=== PATIENT | male | born 2000 | race Caucasian/White ===

== ENCOUNTER 2023-12-22 12:20 | Emergency (ER) | payer BC, SELFPAY ==
[2023-12-22 12:24] VITALS: BP 139/78; PULSE 65; RESP 16; TEMP 36.4; O2SAT 97; BMI 20.2
--- NOTE | 2023-12-22 12:32 | ED_ITS ---
HPI - Animal Bite General Time Seen by Provider: 12:32 Date Seen: 12/22/23 Chief Complaint: Animal Bite Stated Complaint: Dog bite L hand Time Seen by Provider: 12/22/23 12:31 Source: patient and RN notes reviewed Mode of arrival: ambulatory Limitations: no limitations History of Present Illness HPI narrative: Reno is a very pleasant 23-year-old male with history of tetanus in 2021 otherwise healthy who comes to the emergency room after sustaining a dog bite to his left 4th finger. 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 This cause lacerations. He is still able to move his finger without difficulty. Denies a history of poorly healing wounds or history of diabetes. He does not know the vaccination status of the dog. He has not yet reported the bite. He has not taken any medications for discomfort. Related Data Previous Rx's Medication Instructions Recorded amoxicillin 875 mg-potassium 1 tab PO BID #10 tabs 12/22/23 clavulanate 125 mg tablet Allergies Allergy/AdvReac Type Severity Reaction Status Date / Time No Known Drug Allergies Allergy Verified 12/22/23 12:24 Review of Systems Status of ROS: Reports: 6 or more systems reviewed and unremarkable except as noted in History and below PFSH PFS Social History Smoking Status: Current every day smoker Do you use any of these nicotine containing products: Vaping Products and Smokeless Tobacco Second hand tobacco smoke exposure: No How often do you have a drink containing alcohol: 2-4 times a month AUDIT-C Alcohol total score: 2 Non-prescribed substance use: denies use service: No Exam Narrative: Exam Narrative: Alert and oriented. Very pleasant young man. Examination of the 4th finger shows a v-shaped laceration over the volar aspect of the PIP. This compromises epidermis and dermis and there is visualization of the subcutaneous tissue but no underlying structures. Palpation does not yield any foreign body. Patient can flex extend and there is no obvious deformity. Distally on the medial aspect over the D IP there is a superficial laceration compromising only epidermis. Total length of the v-shaped laceration is approximately 1.5 cm. Procedure: This area was cleansed and then irrigated. Let was applied. Good anesthesia was achieved and 1 suture of 5 0 Ethilon was placed at the apex of the V shaped laceration with moderate wound closure. Patient tolerated procedure well. Const: Vital Signs, click to edit/add: Vital Signs - 24 hr 12/22/23 12:24 Temperature 97.6 F Pulse Rate [Pulse Oximeter] 65 Respiratory Rate 16 Blood Pressure [Ri ght Upper Arm] 139/78 Pulse Oximetry 97 Oxygen Delivery Me thod Room Air Documenting provider has reviewed patient's vital signs: yes Course Vital Signs Vital signs: Initial Vital Signs Temperature 97.6 F 12/22/23 12:24 Temperature Source Temporal Artery Scan 12/22/23 12:24 Pulse Rate 65 12/22/23 12:24 Pulse Rhythm Regular 12/22/23 12:24 Pulse Strength 3+ Normal 12/22/23 12:24 Respiratory Rate 16 12/22/23 12:24 Blood Pressure 139/78 12/22/23 12:24 Blood Pressure Mean 98 12/22/23 12:24 Blood Pressure Position Supine 12/22/23 12:24 Pulse Oximetry 97 12/22/23 12:24 Oxygen Delivery Method Room Air 12/22/23 12:24 Vital Signs Temperature 97.6 F 12/22/23 12:24 Pulse Rate 65 12/22/23 12:24 Respiratory Rate 16 12/22/23 12:24 Blood Pressure 139/78 12/22/23 12:24 Pulse Oximetry 97 12/22/23 12:24 Oxygen Delivery Method Room Air 12/22/23 12:24 Temperature 97.6 F 12/22/23 12:24 Pulse Rate 65 12/22/23 12:24 Respiratory Rate 16 12/22/23 12:24 Blood Pressure 139/78 12/22/23 12:24 Pulse Oximetry 97 12/22/23 12:24 Oxygen Delivery Method Room Air 12/22/23 12:24 Medications Administered Medications: Discontinued Medications Generic Name Dose Route Start Last Admin Trade Name Freq PRN Reason Stop Dose Admin Lidocaine/Epinephrine/Tetracaine 3 ml 12/22/23 12:42 12/22/23 13:01 Lidocaine/Epinep/Tetracaine 3 Ml Gel..Ml. TOPICAL 12/22/23 12:43 3 ml ONCE ONE Administration MDM - Animal Bite MDM Narrative Medical decision making narrative: 1. Animal bite laceration-1 suture was placed after copious irrigation. X-ray did not yield any evidence of a foreign body such as dog 2s. Patient will be placed on Augmentin 875 p.o. b.i.d. x5 days. Is up-to-date however, and will vaccinations were not. [facility] Department was contacted. Dog will either need to be quarantine in an area that would not expose him to outside animals or inside for 10 days. Alternatively they may take the dog and have it tested by the supervisor data processing. Patient should seek medical attention for worsening symptoms such as signs of infection, fever, chills and as needed. Suture removal in 10 days time. We did discuss importance of not soaking this wound. [place]o may shower or wash his hands but he should not swim or participate in activities such as washing dishes without covering it. Did explain that normally we would place more sutures but in cases of animal bites we actually want to allow drainage from the wound. 2. Disposition-home at this time. Augmentin prescription sent to [facility]. Return as needed. Imaging Data Left 4th finger x-ray: Attestation: I have reviewed the pertinent imaging results. My impression: I do not note any foreign bodies. I do not note any fractures. Radiologist's impression: Findings/Impression: Bones: Alignment is normal. No displaced fractures or bone lesions. Joint spaces: Unremarkable. Soft tissues: Focal laceration along the volar aspect of the PIP joint. No radiopaque foreign bodies Discharge Plan Discharge Clinical Impression: Dog bite Patient Disposition: Home, Self-Care Condition: Improved Additional Instructions: The dog that bit you will need to be quarantine for 10 days or taken to a supervisor data processing and tested for rabies. You will need to start rabies vaccinations if the dog shows signs of rabies or test positive. Rabies has a fatality rate of 100%. Augmentin for the next 5 days. This is an antibiotic. Suture removal in 10 days time. Return for signs and symptoms of infection. Prescriptions: New amoxicillin-pot clavulanate 875-125 mg tablet 1 tab PO BID Qty: 10 0RF Follow Up/Referrals: Provider,Not a Local [Primary Care Provider] - Stand Alone Forms: [facility]
--- NOTE | 2023-12-22 12:34 | PC.NURSE ---
Reported dog bite to [facility] dispatch.
--- NOTE | 2023-12-22 12:43 | CRLHL7_ITS ---
For Patients: As a result of the Cures Act, medical imaging exams and procedure reports are released immediately into your electronic medical record. You may view this report before your referring provider. If you have questions, please contact your health care provider. Indication: Trauma. Technique: Left 2nd digit, 3 views. Comparison: None. Findings/Impression: Bones: Alignment is normal. No displaced fractures or bone lesions. Joint spaces: Unremarkable. Soft tissues: Focal laceration along the volar aspect of the PIP joint. No radiopaque foreign bodies Dictated by Aiden Dinero MD @ 12/22/2023 1:03:48 PM (Electronically Signed)
[2023-12-22] MEDS: LIDOCAINE/EPINEP/TETRACAINE 3 ML GEL..ML. TOPICAL (13:01)
--- NOTE | 2023-12-22 13:10 | PC.NURSE ---
Spoke with [facility] over the phone. Details of the dog bite was given to depbrenda. Phone number of patient provided to debuty as well and will follow up with patient. stated that we are okay to discharge patient when he meets criteria.
== END 2023-12-22 13:30 | disposition home or self-care (01) ==
PROVIDERS: Emergency Provider Family Medicine
DX: S61.255A Open bite of left ring finger without damage to nail, initial encounter (principal); W54.0XXA Bitten by dog, initial encounter
CPT/HCPCS: 12001; 73140; 99283